=== PATIENT | female | born 1950 | race African-American/Black ===

== ENCOUNTER 2019-12-10 10:18 | Outpatient (CLI) | payer MEDICARE ==
--- NOTE | 2019-12-10 14:12 | MRI ---
EXAM: RIGHT SHOULDER MRI WITHOUT IV CONTRAST: 12/10/19 HISTORY: Right shoulder pain, partial tear of subscapularis tendon. Multiplanar, multisequence MRI examination of the right shoulder is performed. There are some AC join t arthrosis with minimal undersurface spurring of the distal clavicle with some downsloping of the la teral acromion and some minimal fluid and fat stranding in the subacromial bursa. There appears to be a low grade partial thickness undersurface tear of the conjoint tendon and infraspinatus tendon near the insertion without full thickness component or retraction. The subscapularis tendon demonstrates minimal tendinopathy with a probable small low grade partial thickness undersurface tear. The biceps tendon appears intact. Rotator cuff muscles are within normal limits of signal and volume. There is e vidence for some biceps tendinopathy. Abnormal signal associated with the superior labrum extending posteriorly evidence for a SLAP tear. 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 Partial thickness undersurface low grade tear of the conjoint tendon and infraspinatus tendon. Probable very small undersurface and roz minating tear of the subscapularis tendon. Evidence for SLAP tear with some posterior extension. Othe r findings as above. POS: AH
== END 2019-12-10 10:19 | disposition home or self-care (01) ==
LOC: SCSMRI 10:18
PROVIDERS: ATTEND Orthopaedic Surgery
DX: M25.511 Pain in right shoulder (principal); M19.011 Primary osteoarthritis, right shoulder; S43.431A Superior glenoid labrum lesion of right shoulder, initial encounter; M75.81 Other shoulder lesions, right shoulder

== ENCOUNTER 2020-01-03 06:41 | Outpatient (CLI) | payer MEDICARE, OTHER ==
[2020-01-03 14:09] LABS: #Basophils 0.1 thou/uL (0.0-0.2); #Eosinphils 0.1 thou/uL (0.0-0.7); #Lymphocytes 3.8 thou/uL (1.20-3.40); #Monocytes 0.5 thou/uL (0.11-0.59); #Neutrophils 3.4 thou/uL (1.40-6.50); %Basophils 0.6 % (0.0-1.0); %Eosinophils 0.7 % (0.0-10.0); %Monocytes 6.4 % (0.0-10.0); %Neutrophils 43.2 % (42.0-75.0); Hemoglobin 12.8 g/dL (12.0-16.0); Mean Corpuscular HGB CONC 34.1 g/dL (32.0-36.0); Mean Corpuscular Hemoglobin 26.5 pg (27.0-31.0); Mean Corpuscular Volume 77.8 fL (78.0-98.0); Mean Platelet Volume 10.7 fL (7.4-10.4); Platelet Count 174 thou/uL (130-400); RBC Distribution Width 12.6 % (11.5-14.5); Red Blood Cell (RBC) Count 4.83 mill/uL (4.20-5.40); White Blood Cell (WBC) Count 7.8 thou/uL (4.8-10.8)
[2020-01-03 14:31] LABS: Anion Gap 15 mmol/L (10-20); BUN (Urea Nitrogen) 14 mg/dL (9.8-20.1); Calc. Creatinine Clearance 0 mL/min (70-130); Calcium 9.1 mg/dL (7.8-10.44); Carbon Dioxide 23 mmol/L (23-31); Chloride 107 mmol/L (98-107); Estimated GFR-MDRD 53; Glucose 259 mg/dL (80-115); Potassium 3.7 mmol/L (3.5-5.1); Sodium 141 mmol/L (136-145)
[2020-01-04 12:21] LABS: SARS-CoV-2 MS2 Positive; SARS-CoV-2 N Gene Negative; SARS-CoV-2 S Gene Negative; SARS-CoV-2 orf1ab Negative
== END 2020-01-03 06:42 | disposition home or self-care (01) ==
LOC: LABBT 06:41
PROVIDERS: ATTEND Orthopaedic Surgery
DX: Z01.818 Encounter for other preprocedural examination (principal); Z11.59 Encounter for screening for other viral diseases; S43.401A Unspecified sprain of right shoulder joint, initial encounter
CPT/HCPCS: 80048; 85025; 93005; U0003; 87635; 93010

== ENCOUNTER 2020-01-07 06:03 | Day surgery (SDC) | payer MEDICARE ==
[2019-12-31 10:26] VITALS: BMI 31.7
[2020-01-07] MEDS ORDERED: Bupivacaine/Epinephrine 0.25% 30 ML VIAL ONE (06:14)
[2020-01-07] MEDS ORDERED: Lidocaine 1% (PF) 30 ML VIAL ONE (06:31)
[2020-01-07] MEDS ORDERED: Midazolam HCl 2 mg/2 ml Vial ONE (06:31)
[2020-01-07] MEDS ORDERED: Fentanyl 100 MCG/2 ML VIAL ONE ×2 (06:31→06:32)
[2020-01-07] MEDS ORDERED: Lidocaine 4% Topical Sol 50 ML BOT ONE (06:32)
[2020-01-07] MEDS ORDERED: Albuterol Sulfate HFA (OR ONLY) ONE (06:32)
[2020-01-07] MEDS ORDERED: Zolpidem Tartrate 5 MG TAB PO PRN (07:15)
[2020-01-07] MEDS ORDERED: Ondansetron PF 4 MG/2 ML Vial IVP PRN (07:15)
[2020-01-07] MEDS ORDERED: Ropivacaine 0.2% 550 ML 550 ML NERVE BLCK SCH (07:15)
[2020-01-07] MEDS ORDERED: Promethazine HCl 25 MG/ML VIAL IM PRN (07:15)
[2020-01-07] MEDS ORDERED: Acetaminophen 325 MG TAB PO PRN (07:15)
[2020-01-07] MEDS ORDERED: Fentanyl 100 MCG/2 ML VIAL IV PRN (07:16)
[2020-01-07] MEDS ORDERED: SUGAMMADEX SODIUM 200 MG/2 ML VIAL ONE (08:55)
[2020-01-07] MEDS ORDERED: Rocuronium Bromide 10 MG/ML (10ML VIAL) ONE (10:35)
[2020-01-07] MEDS ORDERED: Ondansetron PF 4 MG/2 ML Vial ONE (10:35)
[2020-01-07] MEDS ORDERED: Ropivacaine 0.5% HCl/PF (150 MG/30 ML VIAL) ONE (10:35)
[2020-01-07] MEDS ORDERED: Ropivacaine 0.2% HCl/PF (40 MG/20 ML VIAL) ONE (10:35)
[2020-01-07] MEDS ORDERED: PHENYLEPHRINE-NS 100 MCG/ML 10 ML SYRINGE ONE (10:35)
[2020-01-07] MEDS ORDERED: Lidocaine 1% PF 5 ML VIAL ONE (10:35)
[2020-01-07] MEDS ORDERED: PROPOFOL 200 MG/20 ML VIAL ONE (10:35)
[2020-01-07] MEDS ORDERED: Ondansetron ODT 4 MG TAB ONE (11:19)
--- NOTE | 2020-01-07 11:23 | OP ---
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 POSTOPERATIVE DIAGNOSES: 1. 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 2. Multiple cartilaginous loose bodies, glenohumeral joint. 3. Significant synovitic changes, glenohumeral joint. PROCEDURES PERFORMED: 1. Right shoulder arthroscopy with debridement and shaving of unstable labral tear as well as removal of small cartilaginous loose bodies as well as debridement of any loose chondral flaps on the glenoid as well as the humeral head. 2. Open biceps tenodesis. WOODENWARE ASSEMBLER: Vamsi Mckeon PA-C ANESTHESIA: She had general anesthetic. She had a block. IMPLANTS: 7 x 23 Bio[employer]posite Bio-Tenodesis screw. DISPOSITION: She went to recovery room in stable condition. INDICATIONS: A 69-year-old female who comes in with months of increasing pain and dysfunction. MRI scan showed a degenerative labral tear and at this time she opted for surgery. DESCRIPTION OF PROCEDURE: After all appropriate consent forms were explained and signed, she was taken back to the operative room and at this time was given general anesthetic. Once the level of anesthesia was appropriate, she was rolled into the left lateral decubitus position with all bony problems well-padded and an axillary roll was placed underneath the left axilla. Beanbag was inflated to hold in this position, and all bony prominences were well padded. The arm was taken through full range of motion, suspended with 10 pounds in standard arthroscopic fashion. The right shoulder and upper extremity were then prepped and draped in standard surgical fashion. Bony anatomical landmarks were then drawn out. The subacromial space was infiltrated with Marcaine with epinephrine. Posterior portal was established. Scope was placed into the shoulder joint. Anterior working portal was made using a needle localization technique. Diagnostic arthroscopy commenced in the glenohumeral joint. There were multiple, 6 or 7, loose cartilaginous floating bodies between 2 and 5 mm, which were all removed with a suction shaver device upon entering the glenohumeral joint. Degenerative SLAP tear was noted as well as a tear, where the biceps turned into the superior labrum. This was all debrided with a shaver. Rotator cuff was found to be intact. The humeral head for the most part was found to be in good condition. The majority of the loose bodies were more unlikely coming from the glenoid as there was some significant grade 2 and 3 chondromalacia noted on the glenoid. The subscapularis was intact. There were no loose bodies noted in the axillary pouch. We did find one loose body in the subcoracoid space and at this time, we used the SERFAS energy to coagulate all the brisk bleeding synovitic tissue and then debrided with the shaver. Once this was done, we placed a green cannula anteriorly. We used an 18-gauge needle to mejia the biceps tendon and placed a stitch through it. Arthroscopic scissors were then used to cut the biceps off the superior labrum. We then repositioned the scope in the subacromial space. Lateral working portal was made. We then removed the bursa from off the underlying cuff, and it was evaluated and found to be in excellent condition. SERFAS energy was then used to take the soft tissue off the undersurface of the acromion, but no significant bony decompression was performed. CA ligament was left alone. At this time, we removed the scope and drained the shoulder. NEREYDA Brito, was present and actively involved in all portions of the open biceps tenodesis portion of the procedure, A 15-blade was used to make an incision on the arm down through skin. Bovie was used to coagulate any brisk venous bleeding. The deltoid fascia was opened sharply, and finger dissection was used to split the fibers of the deltoid in line to get down to the underlying transverse humeral ligament. This was opened up, and the biceps tendon pulled out into the wound. This was then stitched. The intra-articular portion of the biceps tendon was then cut off and removed from the field. We then placed our pin, reamed with a 7 mm reamer to a depth of 25 and placed a 7 x 23 [employer] Bio-Tenodesis screw. Sutures were tied over top of this. The screw could not back out. We then thoroughly irrigated and dried this area. We allowed the deltoid to fall upon itself and ran a Vicryl to close the fascia, 2-0 Vicryl and stitches to close skin. All portals were closed with simple nylon stitch. Bulky sterile dressing was then applied, and the patient was then awakened, taken to recovery room in stable condition. All counts were correct at the end of the case, and she did receive preoperative IV antibiotics. Job ID: [id number]
[2020-01-07] MEDS ORDERED: Ketorolac Tromethamine 30 MG/ML VIAL IVP SCH (12:00)
== END 2020-01-07 12:15 | disposition home or self-care (01) ==
LOC: SDC 06:03
PROVIDERS: ATTEND Orthopaedic Surgery
PROC: 0RBJ4ZZ Excision of Right Shoulder Joint, Percutaneous Endoscopic Approach (ICD-10-PCS; principal; 2020-01-07)
PROC: 0LS30ZZ Reposition Right Upper Arm Tendon, Open Approach (ICD-10-PCS; 2020-01-07)
PROC: 0RHJ04Z Insertion of Internal Fixation Device into Right Shoulder Joint, Open Approach (ICD-10-PCS; 2020-01-07)
PROC: 3E0T3BZ Introduction of Anesthetic Agent into Peripheral Nerves and Plexi, Percutaneous Approach (ICD-10-PCS; 2020-01-07)
DX: M25.311 Other instability, right shoulder (principal); S43.431A Superior glenoid labrum lesion of right shoulder, initial encounter; M24.011 Loose body in right shoulder; M94.211 Chondromalacia, right shoulder; G89.18 Other acute postprocedural pain; I10 Essential (primary) hypertension; E78.5 Hyperlipidemia, unspecified; E11.9 Type 2 diabetes mellitus without complications; E03.9 Hypothyroidism, unspecified; M19.90 Unspecified osteoarthritis, unspecified site; Z79.4 Long term (current) use of insulin; Z79.899 Other long term (current) drug therapy; Z88.5 Allergy status to narcotic agent; Z91.013 Allergy to seafood
CPT/HCPCS: 23430; 29822; 64416; 82962; A4306; C1713; 36416; J0690; J2001; J2250; J2405; J2704; J2795; J3010; Q0162

== ENCOUNTER 2020-10-24 08:29 | Outpatient (CLI) | payer MEDICARE ==
[2020-10-24] MEDS ORDERED: Iopamidol-370 76% 500 ML 1 ML ONE (08:52)
== END 2020-10-24 08:30 | disposition home or self-care (01) ==
LOC: BICCT 08:29
PROVIDERS: ATTEND Internal Medicine Gastroenterology
DX: R10.13 Epigastric pain (principal); R11.0 Nausea; K21.9 Gastro-esophageal reflux disease without esophagitis
CPT/HCPCS: 74177; 82565; Q9967

== ENCOUNTER 2025-01-26 12:57 | Outpatient (CLI) | payer MEDICARE | END 2025-01-26 12:58 | disposition home or self-care (01) | LOC: SCSMRI 12:57 | PROVIDERS: ATTEND Orthopaedic Surgery | DX: M24.811 Other specific joint derangements of right shoulder, not elsewhere classified (principal); S46.911A Strain of unspecified muscle, fascia and tendon at shoulder and upper arm level, right arm, initial encounter; M19.011 Primary osteoarthritis, right shoulder ==

== ENCOUNTER 2025-02-22 11:37 | Outpatient (CLI) | payer MEDICARE ==
[2025-02-22 12:42] LABS: Hematocrit 39.3 % (36.0-47.0); Hemoglobin 13.4 g/dL (12.0-16.0); Mean Corpuscular Hemoglobin 26.3 pg (27.0-31.0); Mean Corpuscular Volume 77.1 fL (78.0-98.0); Platelet Count 183 10x3/uL (130-400); Red Blood Cell (RBC) Count 5.10 mill/uL (4.20-5.40); White Blood Cell (WBC) Count 7.72 10x3/uL (4.8-10.8)
[2025-02-22 12:56] LABS: Anion Gap 10 mmol/L (10-20); BUN (Urea Nitrogen) 14 mg/dL (9.8-20.1); Calc. Creatinine Clearance 0 mL/min (70-130); Calcium 8.9 mg/dL (7.8-10.44); Carbon Dioxide 28 mmol/L (23-31); Chloride 105 mmol/L (98-107); Glucose 149 mg/dL (83-110); Potassium 3.9 mmol/L (3.5-5.1); Sodium 139 mmol/L (136-145)
[2025-02-22 13:08] LABS: Anisocytosis SLIGHT = 6-15 cells HPF (0-5); Platelet Adequacy Comment Platelets Normal; Polychromasia SLIGHT = 2-3 cells HPF (0-2); Smudge Cells 13.9 %
== END 2025-02-22 11:38 | disposition home or self-care (01) ==
LOC: LABBT 11:37
PROVIDERS: ATTEND Orthopaedic Surgery
DX: Z01.818 Encounter for other preprocedural examination (principal); M75.101 Unspecified rotator cuff tear or rupture of right shoulder, not specified as traumatic
CPT/HCPCS: 80048; 85025; 93005; 93010

== ENCOUNTER 2025-02-25 10:07 | Day surgery (SDC) | payer MEDICARE ==
[2025-02-22 12:02] VITALS: BMI 28.5
[2025-02-25] MEDS ORDERED: Lidocaine 1% w/Epinephrine 1:100K 20 ML VIAL ONE (10:35)
[2025-02-25] MEDS ORDERED: Ropivacaine 0.5% HCl/PF (150 MG/30 ML VIAL) ONE (10:58)
[2025-02-25] MEDS ORDERED: Ropivacaine 0.2% HCl/PF 20 ML ONE (10:58)
[2025-02-25] MEDS ORDERED: CEFAZOLIN 2 GM VIAL ONE (11:27)
[2025-02-25] MEDS ORDERED: Ropivacaine 0.2% 550 ML 550 ML NERVE BLCK SCH (12:00)
[2025-02-25] MEDS ORDERED: Ondansetron PF 4 MG/2 ML Vial IVP PRN (12:00)
[2025-02-25] MEDS ORDERED: Ketorolac Tromethamine 30 MG (1 mL) VIAL IVP SCH (12:00)
[2025-02-25] MEDS ORDERED: HYDROcodone/Acetaminophen 5/325 mg Tablet PO PRN ×2 (12:00)
[2025-02-25] MEDS ORDERED: PROPOFOL 20 ML ONE (12:01)
[2025-02-25] MEDS ORDERED: fentaNYL PF 100 MCG/2 ML SYRINGE ONE (12:01)
[2025-02-25] MEDS ORDERED: Rocuronium Bromide 10 MG/ML (10ML VIAL) ONE (12:09)
[2025-02-25] MEDS ORDERED: PHENYLEPHRINE-NS 100 MCG/ML 10 ML SYRINGE ONE (12:24)
[2025-02-25] MEDS ORDERED: Ketorolac Tromethamine 30 MG (1 mL) VIAL ONE (12:51)
[2025-02-25] MEDS ORDERED: Ondansetron PF 4 MG/2 ML Vial ONE (12:51)
[2025-02-25] MEDS ORDERED: Glycopyrrolate 0.2 MG/ML 5 ML SYRINGE ONE (12:51)
[2025-02-25] MEDS ORDERED: NEOSTIGMINE 3 MG/3 ML SYRINGE ONE (12:51)
== END 2025-02-25 15:58 | disposition home or self-care (01) ==
LOC: SDC 10:07
PROVIDERS: ATTEND Orthopaedic Surgery
PROC: 0LM14ZZ Reattachment of Right Shoulder Tendon, Percutaneous Endoscopic Approach (ICD-10-PCS; principal; 2025-02-25)
DX: M75.121 Complete rotator cuff tear or rupture of right shoulder, not specified as traumatic (principal); M24.811 Other specific joint derangements of right shoulder, not elsewhere classified; E78.5 Hyperlipidemia, unspecified; E11.9 Type 2 diabetes mellitus without complications; I10 Essential (primary) hypertension; Z79.4 Long term (current) use of insulin; Z79.899 Other long term (current) drug therapy; Z91.013 Allergy to seafood; Z88.5 Allergy status to narcotic agent
CPT/HCPCS: 29827; A4306; J1100; J1885; J2250; J2405; J2704; J2795 ×3; J3010